=== PATIENT | male | born 1995 | race Hispanic/Latino ===

== ENCOUNTER 2024-08-16 16:27 | Emergency (ER) | payer OTHER ==
[~2024-08-16] VITALS: Ht 172.7 cm; Wt 123.8 kg
[2024-08-16 17:27] VITALS: PULSE 86; RESP 18; TEMP 98.1
[2024-08-16 18:03] LABS: BASOPHILS # (AUTO) 0.1 (0.0-0.1); BASOPHILS % 0.6 % (0.0-1.0); EOSINOPHILS # (AUTO) 0.3 (0.0-0.4); HEMATOCRIT 54.7 % (38.2-49.6); HEMOGLOBIN 17.9 g/dL (14.0-18.0); LYMPHOCYTES % 32.2 % (18.0-39.1); MEAN CORPUSCULAR HEMOGLOBIN 31.3 pg (28-32); MEAN CORPUSCULAR HGB CONC 32.7 g/dL (31-35); MEAN CORPUSCULAR VOLUME 95.6 fL (81-99); MONOCYTES % 7.7 % (4.4-11.3); NEUTROPHILS # (AUTO) 7.1 (2.1-6.9); NEUTROPHILS % 56.9 % (38.7-80.0); PLATELET COUNT 212 x10e3/uL (140-360); RED BLOOD COUNT 5.72 x10e6/uL (4.3-5.7); RED CELL DISTRIBUTION WIDTH 12.6 % (11.7-14.4); WHITE BLOOD COUNT 12.39 x10e3/uL (4.8-10.8)
[2024-08-16 18:21] LABS: ALBUMIN 4.5 g/dL (3.5-5.0); ALBUMIN/GLOBULIN RATIO 1.4 (0.8-2.0); BILIRUBIN,TOTAL 0.4 mg/dL (0.2-1.2); CALCIUM 9.7 mg/dL (8.4-10.2); CREATININE, SERUM 0.92 mg/dL (0.72-1.25); TOTAL PROTEIN 7.8 g/dL (6.5-8.1)
[2024-08-16] MEDS: ONDANSETRON HCL INJ 2MG/ML 2ML 2 MG/ML VIAL IV STA (19:11)
[2024-08-16] MEDS ORDERED: ONDANSETRON ODT4 MG SL (19:33)
[2024-08-16 19:53] VITALS: BP 134/84; PULSE 83; RESP 16; TEMP 98.1; O2SAT 100
== END 2024-08-16 19:52 | disposition home or self-care (01) ==
LOC: ER 17:23
DX: R11.0 Nausea (principal); R20.2 Paresthesia of skin; R20.0 Anesthesia of skin; F17.210 Nicotine dependence, cigarettes, uncomplicated
CPT/HCPCS: 36415; 80053; 83690; 85025; 99283; J2405

== ENCOUNTER 2024-08-18 17:51 | Emergency (ER) | payer OTHER ==
[~2024-08-18] VITALS: Ht 172.7 cm; Wt 123.8 kg
[~2024-08-18 17:51] MED LIST: ONDANSETRON ODT4 MG SL
[2024-08-18 18:05] VITALS: PULSE 83; RESP 16; TEMP 97.7; O2SAT 98
[2024-08-18 18:35] VITALS: BP 155/96; PULSE 83; RESP 16; TEMP 97.7
== END 2024-08-18 18:33 | disposition home or self-care (01) ==
LOC: ER 18:13
DX: M79.651 Pain in right thigh (principal); M79.641 Pain in right hand; G89.29 Other chronic pain; R20.2 Paresthesia of skin
CPT/HCPCS: 99282